=== PATIENT | female | born 1945 | race Caucasian/White ===

== ENCOUNTER → 2016-09-23 | Outpatient (CLI) | payer OTHER ==
[~2016-09-23] MED LIST: ALLO100T30 PO; ASPI-13 PO; CALC-229 PO; CEFD300C37 PO; CETI10TA24 PO; CIPR500T3 PO; DOCU-30 PO; ENOX100S4 SQ; ENOX100S5 SQ; FERR325T20 PO; FISH1CAP PO; HYDR12.53 PO; INSU100I13 SC; LISI40TA PO; LOVA40TA2 PO; MAGN400O4 PO; METF500T4 PO; NITR100C PO; NITR100C56 PO; OMEP-110 PO; OMNIPAQUE 350 MG/ML, 100ML BOTTLE ONE; ONDA4TAB13 PO; ONDA4TAB13 SL; SITA100T PO; SULF1TAB3 PO; WARF5TAB7 PO; WARF5TAB7 PO-COUM
== END | disposition home or self-care (01) ==
LOC: CFH 07:49
PROVIDERS: ATTEND Internal Medicine Hematology & Oncology
DX: C83.35 Diffuse large B-cell lymphoma, lymph nodes of inguinal region and lower limb (principal); N28.1 Cyst of kidney, acquired; R19.09 Other intra-abdominal and pelvic swelling, mass and lump
CPT/HCPCS: 71260; 74177; Q9967

== ENCOUNTER → 2016-12-16 | Outpatient (CLI) | payer OTHER ==
[~2016-12-16] MED LIST changes: +DOCU-131 PO; -DOCU-30 PO
== END | disposition home or self-care (01) ==
LOC: CFH 09:47
PROVIDERS: ATTEND Internal Medicine Hematology & Oncology
DX: C83.35 Diffuse large B-cell lymphoma, lymph nodes of inguinal region and lower limb (principal); N28.1 Cyst of kidney, acquired
CPT/HCPCS: 74177; Q9967

== ENCOUNTER 2016-12-22 07:52 | Inpatient (IN) | payer OTHER ==
[~2016-12-22] VITALS: Ht 172.7 cm; Wt 83.9 kg
[~2016-12-22 07:52] MED LIST changes: +FERR325T18 PO; -FERR325T20 PO; -MAGN400O4 PO; +MAGN400O7 PO; -OMNIPAQUE 350 MG/ML, 100ML BOTTLE ONE; +SULF-169 PO; -SULF1TAB3 PO
[2016-12-22] MEDS ORDERED: SODIUM CHLORIDE 0.9% 1,000 ML IV ONE (08:32)
[2016-12-22] MEDS ORDERED: ONDANSETRON 2MG/ML, 2ML ONE ×2 (08:45→11:11)
[2016-12-22] MEDS ORDERED: HYDROmorphone 1 MG/ML, 1ML ONE ×2 (08:45→11:11)
[2016-12-22] MEDS ORDERED: ONDANSETRON 2MG/ML, 2ML IVPush ONE ×2 (09:00→11:30)
[2016-12-22] MEDS: HYDROmorphone 1 MG/ML, 1ML IVPush PRN ×2 (09:00→10:09)
[2016-12-22] MEDS ORDERED: SODIUM CHLORIDE FLUSH 10ML SYR IVF ONE (09:00)
[2016-12-22 09:29] LABS: HEMATOCRIT 38.5 % (34.6-47.8); HEMOGLOBIN 12.7 g/dL (11.7-16.4); WHITE BLOOD COUNT 13.7 x10^3/uL (3.4-10)
[2016-12-22 09:36] LABS: ASPARTATE AMINO TRANSFERASE 8 U/L (15-37); BLOOD UREA NITROGEN 36 mg/dL (7-18)
[2016-12-22] MEDS ORDERED: CEFTRIAXONE PMX 1GM/50ML 50 ML ONE ×2 (11:25→13:41)
[2016-12-22] MEDS ORDERED: HYDROmorphone 2 MG/ML, 1ML IVPush PRN (11:30)
[2016-12-22] MEDS ORDERED: CEFTRIAXONE PMX 1GM/50ML 50 ML IV ONE (11:30)
[2016-12-22] MEDS: SODIUM CHLORIDE 0.9% 1,000 ML IV SCH ×2 (12:31→16:10)
[2016-12-22] MEDS ORDERED: GLUCAGON 1 MG IM PRN (13:00)
[2016-12-22] MEDS ORDERED: BISACODYL 10 MG SUPP PR PRN (13:00)
[2016-12-22] MEDS ORDERED: DEXTROSE 50%, 50ML SYRINGE IVPush PRN (13:00)
[2016-12-22] MEDS ORDERED: DEXTROSE 4 GM TAB.CHEW PO PRN (13:00)
[2016-12-22] MEDS ORDERED: ACETAMINOPHEN 325 MG TABLET PO PRN (13:00)
[2016-12-22] MEDS ORDERED: POLYETHYLENE GLYCOL 17 GM PACKET PO PRN (13:00)
[2016-12-22] MEDS ORDERED: RIVA20TA PO (13:11)
[2016-12-22] MEDS ORDERED: DOCU-131 PO (13:11)
[2016-12-22] MEDS: CEFTRIAXONE PMX 2GM/50ML 50 ML IV SCH (13:48)
[2016-12-22 15:22] VITALS: BP 136/79
[2016-12-22] MEDS: HYDROcodone/APAP 5/325 TABLET PO PRN ×3 (16:08→23:52)
[2016-12-22] MEDS ORDERED: ONDANSETRON 2MG/ML, 2ML IVPush PRN (16:30)
[2016-12-22 19:43] VITALS: BP 137/67
[2016-12-22] MEDS: LOVASTATIN 40 MG TABLET PO SCH (20:54)
[2016-12-22] MEDS: SODIUM CHLORIDE FLUSH 10ML SYR IVF SCH (20:54)
[2016-12-22] MEDS: LACTULOSE 10 GM/15 ML UDC PO SCH (20:54)
[2016-12-22] MEDS: ONDANSETRON ODT 4 MG PO PRN (20:54)
[2016-12-23] MEDS: SODIUM CHLORIDE 0.9% 1,000 ML IV SCH ×4 (01:03→22:55)
[2016-12-23] MEDS: ONDANSETRON ODT 4 MG PO PRN ×4 (01:04→23:50)
[2016-12-23 03:44] VITALS: BP 130/80
[2016-12-23 04:51] LABS: HEMATOCRIT 30.4 % (34.6-47.8); WHITE BLOOD COUNT 7.9 x10^3/uL (3.4-10)
[2016-12-23 05:00] LABS: BLOOD UREA NITROGEN 25 mg/dL (7-18)
[2016-12-23] MEDS: HYDROcodone/APAP 5/325 TABLET PO PRN ×4 (05:10→23:51)
[2016-12-23] MEDS: RIVAROXABAN 20 MG TABLET PO SCH (05:10)
[2016-12-23 06:54] VITALS: BP 115/71
[2016-12-23] MEDS: SENNA/DOCUSATE TABLET PO SCH (09:14)
[2016-12-23] MEDS: metFORMIN 500 MG TABLET PO SCH (09:14)
[2016-12-23] MEDS: LISINOPRIL 10 MG TABLET PO SCH (09:15)
[2016-12-23] MEDS: LACTULOSE 10 GM/15 ML UDC PO SCH ×2 (09:16→20:09)
[2016-12-23] MEDS: SODIUM CHLORIDE FLUSH 10ML SYR IVF SCH ×2 (09:16→20:10)
[2016-12-23 13:02] VITALS: BP 133/78
[2016-12-23] MEDS: CEFTRIAXONE PMX 2GM/50ML 50 ML IV SCH (13:23)
[2016-12-23 14:19] LABS: HEMATOCRIT 30.7 % (34.6-47.8); HEMOGLOBIN 10.2 g/dL (11.7-16.4); WHITE BLOOD COUNT 7.2 x10^3/uL (3.4-10)
[2016-12-23 14:23] LABS: ASPARTATE AMINO TRANSFERASE 6 U/L (15-37); BLOOD UREA NITROGEN 21 mg/dL (7-18)
[2016-12-23] MEDS ORDERED: METOCLOPRAMIDE 5 MG/ML, 2ML IVPush ONE (18:00)
[2016-12-23 20:04] VITALS: BP 145/87
[2016-12-23] MEDS: LOVASTATIN 40 MG TABLET PO SCH (20:09)
[2016-12-24] MEDS: RIVAROXABAN 20 MG TABLET PO SCH (06:00)
[2016-12-24 07:10] VITALS: BP 133/80
[2016-12-24] MEDS: SODIUM CHLORIDE 0.9% 1,000 ML IV SCH ×2 (07:30→16:38)
[2016-12-24 08:19] LABS: ASPARTATE AMINO TRANSFERASE 12 U/L (15-37); BLOOD UREA NITROGEN 15 mg/dL (7-18)
[2016-12-24 08:21] LABS: HEMATOCRIT 29.5 % (34.6-47.8); HEMOGLOBIN 9.9 g/dL (11.7-16.4); WHITE BLOOD COUNT 6.5 x10^3/uL (3.4-10)
[2016-12-24] MEDS: LISINOPRIL 10 MG TABLET PO SCH (09:48)
[2016-12-24] MEDS: HYDROcodone/APAP 5/325 TABLET PO PRN ×2 (09:48→16:38)
[2016-12-24] MEDS: LACTULOSE 10 GM/15 ML UDC PO SCH (09:48)
[2016-12-24] MEDS: ONDANSETRON ODT 4 MG PO PRN ×2 (09:48→16:38)
[2016-12-24] MEDS: SENNA/DOCUSATE TABLET PO SCH (09:48)
[2016-12-24] MEDS: metFORMIN 500 MG TABLET PO SCH (09:49)
[2016-12-24] MEDS: SODIUM CHLORIDE FLUSH 10ML SYR IVF SCH (09:49)
[2016-12-24 13:50] VITALS: BP 146/97
[2016-12-24] MEDS: CEFTRIAXONE PMX 2GM/50ML 50 ML IV SCH (13:57)
[2016-12-24] MEDS ORDERED: NITR100C PO (18:45)
== END 2016-12-24 19:40 | disposition home or self-care (01) | DRG 872 ==
LOC: ED 11:05 → EDIP 11:31 → 3NW 15:13
PROVIDERS: ADMIT Family Medicine; ATTEND Family Medicine
PROC: 0T9B70Z Drainage of Bladder with Drainage Device, Via Natural or Artificial Opening (ICD-10-PCS; principal; 2016-12-22)
DX: A41.9 Sepsis, unspecified organism (principal); I11.0 Hypertensive heart disease with heart failure; C85.90 Non-Hodgkin lymphoma, unspecified, unspecified site; J44.9 Chronic obstructive pulmonary disease, unspecified; N31.9 Neuromuscular dysfunction of bladder, unspecified; N39.0 Urinary tract infection, site not specified; D63.8 Anemia in other chronic diseases classified elsewhere; E03.9 Hypothyroidism, unspecified; I25.10 Atherosclerotic heart disease of native coronary artery without angina pectoris; R11.2 Nausea with vomiting, unspecified; E78.5 Hyperlipidemia, unspecified; F17.210 Nicotine dependence, cigarettes, uncomplicated; K21.9 Gastro-esophageal reflux disease without esophagitis; K59.09 Other constipation; R33.8 Other retention of urine; E11.9 Type 2 diabetes mellitus without complications; Z79.4 Long term (current) use of insulin; Z85.3 Personal history of malignant neoplasm of breast; Z86.711 Personal history of pulmonary embolism; Z86.73 Personal history of transient ischemic attack (TIA), and cerebral infarction without residual deficits; Z90.49 Acquired absence of other specified parts of digestive tract; Z92.3 Personal history of irradiation; Z90.89 Acquired absence of other organs; Z90.710 Acquired absence of both cervix and uterus; Z88.0 Allergy status to penicillin; Z88.5 Allergy status to narcotic agent; Z91.012 Allergy to eggs
CPT/HCPCS: 36415; 71010; 80048; 80053; 81001; 82962; 83036; 83605; 83735; 84145; 85025; 87040; 87077; 87086; 87186; 93005; 96361; 96365; 96375; 96376; J0696; J1170; J2405; Q0162; J2765; J7030

== ENCOUNTER 2017-01-29 07:45 | Emergency (ER) | payer OTHER ==
[~2017-01-29] VITALS: Ht 172.7 cm; Wt 85.0 kg
[~2017-01-29 07:45] MED LIST changes: +RIVA20TA PO
[2017-01-29] MEDS ORDERED: ONDANSETRON 2MG/ML, 2ML IVPush ONE (08:30)
[2017-01-29] MEDS ORDERED: SODIUM CHLORIDE 0.9% 1,000ML IVBOLUS ONE ×2 (08:30→11:30)
[2017-01-29] MEDS ORDERED: SODIUM CHLORIDE 0.9% 1,000 ML IV ONE (08:30)
[2017-01-29] MEDS ORDERED: ONDANSETRON 2MG/ML, 2ML ONE (08:41)
[2017-01-29 08:55] LABS: HEMATOCRIT 40.3 % (34.6-47.8); HEMOGLOBIN 13.5 g/dL (11.7-16.4); WHITE BLOOD COUNT 9.9 x10^3/uL (3.4-10)
[2017-01-29 09:04] LABS: BLOOD UREA NITROGEN 19 mg/dL (7-18)
[2017-01-29 09:07] LABS: ASPARTATE AMINO TRANSFERASE 9 U/L (15-37)
[2017-01-29] MEDS ORDERED: HYDROmorphone 1 MG/ML, 1ML ONE ×2 (11:20→15:12)
[2017-01-29] MEDS ORDERED: HYDROmorphone 1 MG/ML, 1ML IVPush PRN (11:30)
[2017-01-29] MEDS ORDERED: MAGNESIUM CITRATE 300ML ORAL SOL PO ONE (13:00)
[2017-01-29] MEDS ORDERED: MAGNESIUM CITRATE 300ML ORAL SOL ONE (13:29)
[2017-01-29 15:11] VITALS: BP 132/89
== END 2017-01-29 15:14 | disposition home or self-care (01) ==
LOC: ED 09:12
DX: K59.00 Constipation, unspecified (principal); N30.00 Acute cystitis without hematuria; I10 Essential (primary) hypertension; E11.9 Type 2 diabetes mellitus without complications; Z86.73 Personal history of transient ischemic attack (TIA), and cerebral infarction without residual deficits; Z85.3 Personal history of malignant neoplasm of breast
CPT/HCPCS: 36415; 74020; 80053; 81001; 83690; 85025; 87077; 87086; 87186; 96361; 96374; 96375; 99285; J1170; J2405; J7030

== ENCOUNTER 2017-05-05 16:32 | Emergency (ER) | payer OTHER ==
[~2017-05-05] VITALS: Ht 172.7 cm; Wt 80.0 kg
[2017-05-05 17:24] LABS: BASOPHILS # (AUTO) 0.02 x10^3/uL (0-0.1); BASOPHILS % (AUTO) 0 % (0-1); EOSINOPHILS # (AUTO) 0.04 x10^3/uL (0-0.4); EOSINOPHILS % (AUTO) 1 % (1-7); LYMPHOCYTES # (AUTO) 1.44 x10^3/uL (1-3.4); LYMPHOCYTES % (AUTO) 20 % (22-44); MD NO; MEAN CORPUSCULAR HEMOGLOBIN 27.5 pg (27.0-34.8); MEAN CORPUSCULAR HGB CONC 32.5 g/dL (32.4-35.8); MEAN CORPUSCULAR VOLUME 84.8 fL (80-100); MEAN PLATELET VOLUME 7.7 fL (7.4-10.4); MONOCYTES # (AUTO) 0.54 x10^3/uL (0.2-0.8); MONOCYTES % (AUTO) 7 % (2-9); NEUTROPHILS # (AUTO) 5.19 x10^3/uL (1.8-6.8); NEUTROPHILS % (AUTO) 72 % (42-75); PLATELET COUNT 348 x10^3/uL (130-400); RED CELL DISTRIBUTION WIDTH 17.4 % (9.6-15.2)
[2017-05-05 17:35] LABS: ALANINE AMINOTRANSFERASE 11 U/L (12-78); ALBUMIN 2.9 g/dL (3.4-5.0); ANION GAP 9 mmol/L (5-15); CHLORIDE 108 mmol/L (98-107)
[2017-05-05 17:37] LABS: ALKALINE PHOSPHATASE 68 U/L (45-117); BILIRUBIN,TOTAL 0.3 mg/dL (0.2-1.0); TOTAL PROTEIN 6.4 g/dL (6.4-8.2)
[2017-05-05 17:47] LABS: INTERNATIONAL NORMALIZED RATIO 1.16 (0.93-1.1)
[2017-05-05] MEDS ORDERED: ENOXAPARIN 80 MG/0.8 ML SQ SCH (18:00)
[2017-05-05] MEDS ORDERED: ENOXAPARIN 80 MG/0.8 ML ONE (18:53)
[2017-05-05 19:01] VITALS: BP 136/84
== END 2017-05-05 19:15 | disposition home or self-care (01) ==
LOC: ED 19:09
DX: I82.402 Acute embolism and thrombosis of unspecified deep veins of left lower extremity (principal); I10 Essential (primary) hypertension; E11.9 Type 2 diabetes mellitus without complications; K21.9 Gastro-esophageal reflux disease without esophagitis; Z85.3 Personal history of malignant neoplasm of breast; Z79.01 Long term (current) use of anticoagulants; Z86.711 Personal history of pulmonary embolism; Z86.718 Personal history of other venous thrombosis and embolism; Z90.49 Acquired absence of other specified parts of digestive tract; Z88.0 Allergy status to penicillin
CPT/HCPCS: 36415; 80053; 85025; 85610; 96372; 99284; J1650

== ENCOUNTER → 2017-05-10 | Outpatient (CLI) | payer OTHER ==
[2017-05-10 12:11] LABS: INTERNATIONAL NORMALIZED RATIO 3.56 (0.93-1.1); PROTHROMBIN TIME 36.1 Seconds (9.6-11.5)
== END | disposition home or self-care (01) ==
LOC: LAB 11:31
PROVIDERS: ATTEND Family Medicine
DX: I82.90 Acute embolism and thrombosis of unspecified vein (principal); E11.9 Type 2 diabetes mellitus without complications
CPT/HCPCS: 36415; 85610